=== PATIENT | female | born 1995 | race Caucasian/White ===

== ENCOUNTER 2017-08-31 22:43 | Emergency (ER) | payer BC ==
[2017-09-01] MEDS ORDERED: Famotidine 20 MG Tab PO ONE (00:37)
--- NOTE | 2017-09-01 00:41 | EDM.PDOC ---
ED HPI GENERAL MEDICAL PROBLEM - General Chief Complaint: General Stated Complaint: HARD TIME EATING/PAIN Time Seen by Provider: 09/01/17 00:15 Source of Information: Reports: Patient, Family (Mom), RN Notes Reviewed History Limitations: Reports: No Limitations - History of Present Illness INITIAL COMMENTS - FREE TEXT/NARRATIVE: Here with her mom and boyfriend Chief complaint Painful swallowing History of present illness 22-year-old female who reports that gradual onset of pain with swallowing about 2 days ago. It doesn't hurt in her throat that hurts in her midchest and then in the lower anterior chest when she swallows. Once this was initially she doesn't have any abdominal pain. Slight nausea, she thinks it might be because she is worried about it. No change of bowel movements no urinary troubles no difficulties breathing no palpitations no vomiting burping. A few months ago she was diagnosed with costochondritis treated with an anti- inflammatory. No personal or family history of gallstones She denies any possibility of Food does not get stuck in her throat, but is painful as well as to the point that sometimes she does want to eat. She did eat a full supper tonight. Epigastric Pain Score (Numeric/FACES): 1 - Related Data Allergies Allergy/AdvReac Type Severity Reaction Status Date / Time No Known Allergies Allergy Verified 09/01/17 00:04 Home Meds: Home Meds Famotidine [Pepcid] 20 mg PO BID #30 tab 09/01/17 [Rx] SUMAtriptan 100 mg PO ASDIRECTED PRN 09/01/17 [History] Past Medical History HEENT History: Reports: Allergic Rhinitis, Impaired Vision Neurological History: Reports: Concussion, Migraines Psychiatric History: Reports: Anxiety Social & Family History - Tobacco Use Smoking Status *Q: Never Smoker - Caffeine Use Caffeine Use: Reports: Coffee - Recreational Drug Use Recreational Drug Use: No ED ROS GENERAL - Review of Systems Review Of Systems: See Below Constitutional: Reports: No Symptoms HEENT: Reports: Other (Pain with swallowing in the chest). Denies: Throat Pain , Throat Swelling Respiratory: Reports: No Symptoms Cardiovascular: Reports: No Symptoms GI/Abdominal: Reports: No Symptoms : Reports: No Symptoms Musculoskeletal: Reports: No Symptoms, Muscle Pain Neurological: Reports: No Symptoms Psychiatric: Reports: Other (Sleep has been normal) ED EXAM, GENERAL - Physical Exam Exam: See Below Exam Limited By: No Limitations General Appearance: Alert, Anxious, Mild Distress, Other (Appears well, vital signs normal) Eye Exam: Bilateral Eye: Normal Inspection Ears: Normal External Exam, Normal TMs Nose: Normal Inspection Throat/Mouth: Normal Inspection, Normal Lips, Normal Teeth, Normal Gums, Normal Oropharynx, Normal Voice Head: Atraumatic, Normocephalic Neck: Normal Inspection, Supple, Non-Tender, Full Range of Motion. No: Lymphadenopathy (R), Lymphadenopathy (L) Respiratory/Chest: No Respiratory Distress, No Accessory Muscle Use Cardiovascular: Normal Peripheral Pulses, Regular Rate, Rhythm GI/Abdominal: Normal Bowel Sounds, Soft, Non-Tender, No Organomegaly, No Distention, No Abnormal Bruit, No Mass Neurological: Alert, Oriented, No Motor/Sensory Deficits Skin Exam: Warm, Dry, Intact, Normal Color, No Rash Lymphatic: No Adenopathy Course - Vital Signs Last Recorded V/S: Last Vital Signs Temp 36.4 C 09/01/17 00:09 Pulse 84 09/01/17 00:09 Resp 18 09/01/17 00:09 BP 114/66 09/01/17 00:09 Pulse Ox 98 09/01/17 00:09 - Orders/Labs/Meds Meds: Medications Discontinued Medications Generic Name Dose Route Start Last Admin Trade Name Roel PRN Reason Stop Dose Admin Famotidine 20 mg 09/01/17 00:37 Pepcid PO 09/01/17 00:38 ONETIME ONE - Re-Assessments/Exams Free Text/Narrative Re-Assessment/Exam: 09/01/17 00:37 22-year-old female with pain with swallowing for the last 2 days. Apart from this she has mild pain in between episodes. No acute findings on exam Differential diagnosis includes esophagitis, esophageal spasm, esophageal stricture, peptic ulcer, gastritis. Pepcid 20 mg by mouth Follow-up primary care 1 week Departure - Departure Time of Disposition: 00:38 Disposition: Home, Self-Care 01 Condition: Good Clinical Impression: Painful swallowing - Discharge Information Prescriptions: Famotidine [Pepcid] 20 mg PO BID #30 tab Instructions: Dysphagia Referrals: PCP,None [Primary Care Provider] - Forms: ED Department Discharge Additional Instructions: Painful swallowing also called dysphagia This can have several causes Most likely there is some inflammation on the inside of your esophagus and will heal without special treatment. Take an acid reducing medication for about 2 weeks such as Pepcid 20 mg twice daily or 40 mg once daily Or omeprazole 20 mg once daily Or ranitidine 150 mg twice daily See your physician 1 week for recheck Get checked sooner if you're having repeated vomiting, unable to swallow anything, severe abdominal pain or fever
== END 2017-09-01 01:10 | disposition home or self-care (01) ==
LOC: JP.ED 22:43
DX: R13.10 Dysphagia, unspecified (principal)
CPT/HCPCS: 99284; A9270